=== PATIENT | female | born 1945 | race Caucasian/White ===

== ENCOUNTER 2020-05-08 13:08 | Emergency (ER) | payer OTHER, SELFPAY ==
--- NOTE | ~2020-05-08 | XR_ITS ---
EXAMINATION: XR knee RT 3V DATE: 05/08/2020 13:54 INDICATION: Right knee pain. TECHNIQUE: 3 views of right knee were obtained. COMPARISON: None. FINDINGS: Bone alignment is normal. No fracture. Osteopenia is noted. There is moderate osteoarthriti s of medial and patellofemoral compartments and mild osteoarthritis of lateral compartment. There is a small knee joint effusion. There is superficial infrapatellar bursitis. IMPRESSION: 1. Moderate right knee osteoarthritis. 2. Small right knee joint effusion. 3. Superficial infrapatellar bursitis. Reviewed, dictated and finalized at location A. UNICATION SPEC
[2020-05-08 13:08] VITALS: BP 183/74; PULSE 89; RESP 18; TEMP 36.3; O2SAT 98
--- NOTE | 2020-05-08 13:20 | ED.FALL ---
HPI - Fall General Source: patient Mode of arrival: ambulatory Limitations: no limitations History of Present Illness HPI Narrative: Patient comes in after fall on right knee. She comes in with bruising to right knee. She fell on her right knee in a parking lot and comes in with what appears to be a superficial hematoma to the right knee. Pain is mild, mostly sharp and ongoing unchanged. complaint: fall Onset (ago): minute(s) Fall from: standing Place fall occurred: other (grocery store) Loss of consciousness: none Prolonged down time: no Symptoms prior to fall: none Context: tripped/slipped Location of injury - extremities: Right: knee (Small hematoma over kneecap ) Severity: mild Severity scale (1-10): 4 Quality: sharp Related Data Home Medications Medication Instructions Recorded Confirmed No Home Medications 05/08/20 05/08/20 Allergies Allergy/AdvReac Type Severity Reaction Status Date / Time No Known Allergies Allergy Verified 05/08/20 13:13 Review of Systems Constitutional: Constitutional: Reports no additional constitutional complaints Eyes: Eyes: Reports no additional eye complaints ENT: Reports system reviewed and no additional complaints, except as documented Cardiovascular: Cardiovascular: Reports no additional cardiovascular complaints Respiratory: Respiratory: Reports no additional respiratory complaints Gastrointestinal: Gastrointestinal: Reports no additional gastrointestinal complaints Genitourinary: Genitourinary: Reports no additional female genitourinary complaints Musculoskeletal: Musculoskeletal: Reports no additional musculoskeletal complaints Integumentary/Breasts: Skin/Breast: Reports system reviewed and no additional complaints, except as docu Neurologic: Reports system reviewed and no additional complaints, except as documented Psychiatric: Psychiatric: Reports no additional psychiatric complaints Endocrine: Endocrine: Reports no additional endocrine complaints Hematologic/Lymphatic: Hematologic/Lymphatic: Reports no additional hematologic/lymphatic complaints Allergic/Immunologic: Allergic/Immunologic: Reports no additional allergic/immunologic complaints [facility] Past Medical History Medical History Colon cancer Surgical History Surgical History S/P colon resection Family History Family History (Updated 05/08/20 @ 14:17 by Royer Culver MD) Mother No problems noted. Social History Social History (Updated 05/08/20 @ 14:17 by Royer Culver MD) Smoking status: Current every day smoker Tobacco type: cigarettes Additional smoking assessment comments: 1/2 PPD Exam Const: General: no acute distress Nutritional Appearance: well nourished HENMT: Head: normal to inspection Ears: external ears normal Mouth: Yes Normal oral and palatal mucosa present Teeth and gingiva: dentition normal Throat: posterior oropharynx normal Eyes: Conjunctivae: conjunctivae normal Pupils: Equal, round and reactive pupils present Neck: Neck: normal visual inspection Chest: Chest palpation & inspection: normal inspection of the chest Resp: Effort & Inspection: normal respiratory effort Auscultation: clear to auscultation bilaterally Cardio: Rate: regular rate Rhythm: regular rhythm GI: Auscultation: normal bowel sounds (soft nontender) Skin: General skin exam: normal color Neuro: General: patient oriented x3, moves all extremities and no focal motor deficits Extrem: Other: Bruising over right Course Course Emergency Course: Plain films of the right knee were done and were unremarkable. We will discharge her. She declines a steroid. She declines ketorolac that has been offered. Vital Signs Vital signs: Vital Signs Temperature 36.3 C L 05/08/20 13:08 Pulse Rate 89 05/08/20 13:08 Respiratory Rate 18 05/08/20 13:08 Blood Pressure 183
--- NOTE | 2020-05-08 13:31 | PC.NURSE ---
PT OFFERED PAIN MEDICATION ORDERED BY ERP. PATIENT STATES SHE DOES NOT WANT A SHOT. ORAL PAIN RELIEF MEDICATION OFFERED, PATIENT STATES SHE ALSO DOES NOT WANT THAT. SHE STATES HER PAIN IS NOT THAT BAD.
[2020-05-08 14:10] VITALS: BP 185/77; PULSE 90; RESP 18; O2SAT 95
== END 2020-05-08 14:10 | disposition home or self-care (01) ==
PROVIDERS: Emergency Provider Emergency Medicine
DX: S80.01XA Contusion of right knee, initial encounter (principal); W19.XXXA Unspecified fall, initial encounter
CPT/HCPCS: 73562; 99282; 99283

== ENCOUNTER 2020-12-31 18:10 | Emergency (ER) | payer MEDICARE, SELFPAY ==
--- NOTE | ~2020-12-31 | XR_ITS ---
XR lumbar spine 2-3V DATE: 12/31/2020 19:23 INDICATION: Lower back pain. No injury. TECHNIQUE: AP, lateral, coned lateral lumbosacral views COMPARISON: None FINDINGS: There is diffuse osteopenia. There is moderate levoscoliosis of the thoracolumbar spine. No fracture or bone destruction is evident. Included lower thoracic and lumbar pedicles are intact. There is grade 1 anterolisthesis at L4-5 due to degenerative changes apophyseal joints. There is mild degenerative disc disease of the lumbar spine. The sacroiliac joints appear normal. There is extensive calcification of the abdominal aorta. Abdominal aortic aneurysm is suggested. IMPRESSION: Diffuse osteopenia Levoscoliosis of the thoracic and lumbar spine Grade 1 anterolisthesis at L4-5 due to degenerative change at the apophyseal joints Mild degenerative disc disease Reviewed, dictated and finalized at location A. IMPRESSION: Diffuse osteopenia Levoscoliosis of the thoracic and lumbar spine Grade 1 anterolisthesis at L4-5 due to degenerative change at the apophyseal chastity ints Mild degenerative disc disease
--- NOTE | ~2020-12-31 | XR_ITS ---
XR hip LT 2V w AP pelvis DATE: 12/31/2020 19:23 INDICATION: Left hip pain. No injury. TECHNIQUE: AP pelvis. AP and lateral views of left hip COMPARISON: None FINDINGS: There is diffuse osteopenia. There is levoscoliosis and degenerative change of the lumbar s pine. No pelvic fracture or bone destruction is evident. Normal alignment at the pubic symphysis and sacroi liac joints. Mild bilateral hip osteoarthritis. No fracture or dislocation, avascular necrosis or bone destruction of the left hip is detected. IMPRESSION: Diffuse osteopenia Levoscoliosis and degenerative change of the lumbar spine Mild bilateral hip osteoarthritis No pelvic or left hip fracture or dislocation Reviewed, dictated and finalized at location A.
--- NOTE | 2020-12-31 18:23 | ED.BACK ---
HPI - Back Pain/Injury General Chief Complaint: Back Pain/Injury Stated Complaint: severe lower back pain Source: patient, family and RN notes reviewed Mode of arrival: wheelchair Limitations: no limitations History of Present Illness MD elicited complaint: back pain Onset (ago): day(s) (3) Timing: constant Similar Symptoms Previously: No Quality: dull and aching Location: left lower back Radiation: other (left hip) Exacerbating factors: movement Relieving factors: none Associated symptoms: weakness, fatigue and difficulty walking Work related injury: No Related Data Home Medications Medication Instructions Recorded Confirmed amlodipine 5 mg PO DAILY 12/31/20 12/31/20 Allergies Allergy/AdvReac Type Severity Reaction Status Date / Time No Known Allergies Allergy Verified 12/31/20 18:30 Review of Systems Review of Systems: All systems reviewed & are unremarkable except as noted in HPI and below Constitutional: Constitutional: Denies chills and Denies fever(s) PMFSH Past Medical History Medical History Colon cancer Surgical History Surgical History S/P colon resection Family History Family History Mother No problems noted. Social History Social History Smoking status: Current every day smoker Tobacco type: cigarettes Additional smoking assessment comments: 1/2 PPD Exam Const: General: healthy appearing and no acute distress Nutritional Appearance: well nourished and thin Orientation/consciousness: patient oriented x3 HENMT: Head: normal to inspection Ears: external ears normal Eyes: Conjunctivae: conjunctivae normal Pupils: Equal, round and reactive pupils present EOM: EOMs intact bilaterally Neck: Neck: normal visual inspection Resp: Effort & Inspection: normal respiratory effort Auscultation: clear to auscultation bilaterally Cardio: Rate: regular rate Rhythm: regular rhythm GI: GI Palp: Yes Soft to palpation, No Tenderness to palpation present (GI) and No Rebound tenderness present Auscultation: normal bowel sounds Back/Spine/Pelvis: Cervical Spine: cervical ROM normal Thoracic/Lumbar Spine: straight leg raise negative bilaterally, paraspinal muscle tenderness on the left (mild) in the lower lumbar and thoraco-lumbar ROM limited with forward flexion Pelvis: no pain with anterior-posterior compression (mild) Sacroiliac joints: on the left tender to palpation Sacrum: no tenderness Coccyx: no tenderness Skin: General skin exam: normal color Rashes: no rashes Neuro: General: patient oriented x3, moves all extremities, no meningeal signs and no focal motor deficits Speech: normal speech Gait exam (Neuro): Normal gait present Extrem: General: no clubbing, cyanosis or edema Left lower extremity: hip/thigh Details: tenderness Location: of the hip Location: posterolaterally (moderate) Psych: Appearance: grossly normal and well kempt Mental Status: mental status grossly normal Affect: normal affect Attitude: cooperative Thought content: Yes Normal thought content present Course Course Emergency Course: patient significantly improved after injection of Toradol 30 mg. She says that her blood pressure is always elevated when she goes to the doctor however I am going to give her some clonidine 0.2 mg p.o.. Recommended she be on anti-inflammatory for 10 days and she will follow up with her doctor after that. Discharge Plan Discharge Clinical Impression: Scoliosis Qualifiers: Scoliosis type: idiopathic Idiopathic scoliosis type: other Spinal region: thoracolumbar Qualified Code(s): M41.25 - Other idiopathic scoliosis, thoracolumbar region OA (osteoarthritis) of hip Qualifiers: Osteoarthritis type: unspecified Laterality: left Qualified Code(s): M16.12 - Unilat
[2020-12-31 18:34] VITALS: BP 206/75; PULSE 86; RESP 18; TEMP 36.8; O2SAT 97
[2020-12-31] MEDS: KETOROLAC 30 MG/ML VIAL (*BKC) IM (19:05)
[2020-12-31 19:55] VITALS: BP 222/88; PULSE 74; RESP 20; O2SAT 98
[2020-12-31] MEDS: cloNIDine HCL 0.1 MG TABLET 0.2 MG PO (20:04)
[2020-12-31 20:25] VITALS: BP 178/72; PULSE 80
[2020-12-31 20:36] VITALS: BP 178/82; PULSE 72; RESP 20; TEMP 36.6; O2SAT 99
== END 2020-12-31 20:38 | disposition home or self-care (01) ==
PROVIDERS: Emergency Provider Emergency Medicine
DX: M41.25 Other idiopathic scoliosis, thoracolumbar region (principal); M16.12 Unilateral primary osteoarthritis, left hip; M51.36 Other intervertebral disc degeneration, lumbar region; Z85.038 Personal history of other malignant neoplasm of large intestine; F17.200 Nicotine dependence, unspecified, uncomplicated
CPT/HCPCS: 72100; 73502; 96372; 99283; A9270; J1885

== ENCOUNTER 2021-01-06 16:42 | Emergency (ER) | payer MEDICARE, SELFPAY ==
--- NOTE | ~2021-01-06 | CT_ITS ---
EXAMINATION: CTA chest abdomen DATE: 01/06/2021 20:47 CDT INDICATION: Abdominal aortic aneurysm. TECHNIQUE: Computed tomographic angiography (CTA) of the chest, abdomen no evidence for aortic dissec tion. Small right pleural effusion. Right basilar airspace consolidation may represent pneumonia and/ or atelectasis. No thoracic lymphadenopathy. Atrophic thyroid gland. Was performed without and with 1 00 mL Omnipaque-350 intravenous contrast. The dose-length product was 179.29 mGy-cm. Maximum intensit y projection 3D-reconstructions of the aorta and other arteries were constructed by the technologist on a separate workstation. Automated exposure control and iterative reconstruction technique were emp loyed. COMPARISON: None. FINDINGS: CHEST/ABDOMEN CTA: There is moderate diffuse atherosclerosis of the aorta and coronary arteries. Heart size normal. Ther e are multiple saccular aneurysms of the infrarenal abdominal aorta with the superiormost aneurysm me asuring 3.4 cm AP x3.1 cm transverse. The inferior aneurysm measures 3.4 x 3.3 cm. No evidence for pu lmonary embolism. The liver, spleen, pancreas, right adrenal gland are unremarkable. There is bilateral renal cortical thinning. There is left adrenal thickening without discrete mass, likely adrenal hyperplasia. Gallbla dder is present. Nonobstructive bowel gas pattern. There is a T8 compression fracture, likely chronic . Moderate thoracic and lumbar spondylosis. IMPRESSION: 1. Infrarenal abdominal aortic saccular aneurysms, largest measuring up to 3.4 cm maximum dimension. No evidence for aortic dissection. 2: Right lower lobe airspace consolidation which may represent pneumonia and/or atelectasis. 3: Small right pleural effusion. 4: Wedge compression fracture of T8, likely chronic. Reviewed, dictated and finalized at location A.
--- NOTE | ~2021-01-06 | CT_ITS ---
EXAMINATION: CT lumbar spine wo con DATE: 01/06/2021 18:44 CDT INDICATION: Acute low back pain TECHNIQUE: Computed tomography (CT) of the lumbar spine was performed without intravenous contrast. T he dose-length product was 147.90 mGy-cm. Automated exposure control and iterative reconstruction ani hnique were employed. COMPARISON: Lumbar spine dated 12/31/2020 FINDINGS: Moderate right pleural effusion. Right lower lobe airspace disease, compatible with pneumon ia. There are nonobstructing bilateral renal stones. There is diffuse atherosclerosis with multiple m id-lower to lower abdominal aortic aneurysms with saccular appearance. The mid abdominal aortic aneur ysm measures 3.5 cm. The lower aneurysm is not well visualized. There is loss of disc height at all l umbar levels consistent with degenerative disc disease. There is moderate multilevel facet hypertroph y with levoscoliosis. There is grade 1 degenerative spondylolisthesis at L4-5. The following disc lev els are specifically discussed: T11-T12: The disc does not extend beyond the endplate margin. There is no facet joint osteoarthritis. There is no neural foraminal stenosis. There is no central canal stenosis. T12-L1: The disc does not extend beyond the endplate margin. There is no facet joint osteoarthritis. There is no neural foraminal stenosis. There is no central canal stenosis. L1-L2: The disc does not extend beyond the endplate margin. There is no facet joint osteoarthritis. T here is no neural foraminal stenosis. There is no central canal stenosis. L2-L3: There is mild disc bulging without focal herniation. There is bilateral facet joint osteoarthr itis. There is no neural foraminal stenosis. There is no central canal stenosis. L3-L4: There is mild annular disc bulging. There is bilateral facet joint osteoarthritis. There is no neural foraminal stenosis. There is no central canal stenosis. L4-L5: There is moderate annular disc bulging. There is bilateral facet joint osteoarthritis. There i s bilateral neural foraminal stenosis. There is moderate central canal stenosis. L5-S1: There is mild annular disc bulging. There is bilateral facet joint osteoarthritis. There is bi lateral neural foraminal stenosis. There is mild central canal stenosis. IMPRESSION: 1. No acute lumbar spine fracture. 2: Severe cervical spondylosis. 3: Infrarenal abdominal aortic aneurysm, incompletely visualized. 4: Right lower lobe airspace consolidation, consistent with pneumonia. Small right pleural effusion. 5: Nonobstructing bilateral nephrolithiasis. Reviewed, dictated and finalized at location A. IMPRESSION: 1. No acute lumbar spine fracture. 2: Severe cervical spondylosis. 3: Infrarenal abdominal aortic aneurysm, incompletely visualized. 4: Right lower lobe airspace consolidation, consistent with pneumonia. Small ri ght pleural effusion. 5: Nonobstructing bilateral nephrolithiasis.
[2021-01-06 16:51] VITALS: BP 150/72; PULSE 89; RESP 16; TEMP 36.4; O2SAT 98
[2021-01-06] MEDS: oxyCODONE/ACETAMINOPHEN (*CRX) 5-325 MG TABLET 1 TABLET PO (18:16)
[2021-01-06 18:26] VITALS: BP 209/87; PULSE 76; RESP 15; O2SAT 97
[2021-01-06 19:19] VITALS: BP 158/83; PULSE 72; RESP 16; O2SAT 94
--- NOTE | 2021-01-06 19:22 | PC.NURSE ---
assuming care of pt at this time. report from CALVIN Messer.
--- NOTE | 2021-01-06 19:36 | PC.NURSE ---
tech at bedside at this time drawing labs.
[2021-01-06 19:44] LABS: Basophils Absolute Auto 0.3 K/mm3 (0.0-0.1); Basophils Percent Auto 2.6 % (0.2-1.2); Eosinophils Absolute Auto 0.1 K/mm3 (0-0.3); Eosinophils Percent Auto 1.4 % (0-4.4); Hematocrit 38.1 % (37.0-47.0); Hemoglobin 11.1 g/dL (12.0-15.0); Immature Granulocyte Absolute 0.15 K/mm3 (0.00-0.031); Immature Granulocyte Percent A 1.5 % (0-0.5); Lymphocytes Absolute Auto 0.88 K/mm3 (0.9-3.2); Lymphocytes Percent Auto 8.7 % (18.3-44.2); Mean Corpuscular HGB Conc 29.1 g/dl (32-36); Mean Corpuscular Hemoglobin 20.4 pg (26-34); Mean Corpuscular Volume 70.2 fl (80-100); Monocytes Absolute Auto 1.2 K/mm3 (0.1-0.6); Monocytes Percent Auto 11.6 % (2.6-8.5); Neutrophils Absolute Auto 7.5 K/mm3 (1.3-6.7); Neutrophils Percent Auto 74.2 % (45.5-73.1); Nucleated Red Blood Cells Perc 0.2 % (0.0-0.2); Platelet Count Result 367 k/mm3 (150-375); Red Blood Count 5.43 M/mm3 (4.2-5.4); Red Cell Distribution Width 22.8 % (11.5-14.5); White Blood Count 10.1 K/mm3 (4.5-10.0)
[2021-01-06 20:02] LABS: D Dimer 1.46 ug/mL (<0.48)
[2021-01-06 20:03] LABS: Anion Gap 12 mmol/L (8-16); Blood Urea Nitrogen 14 mg/dL (7-17); Calcium 9.4 mg/dL (8.4-10.2); Carbon Dioxide 24 mmol/L (22-30); Chloride 101 mmol/L (98-107); Estimated CRCL calculation 44 ml/min; Estimated Glomerular Filt Rate > 60; Glucose 119 mg/dL (65-110); Potassium 3.2 mmol/L (3.4-5.0); Sodium 137 mmol/L (137-145)
--- NOTE | 2021-01-06 21:37 | ED.BACK ---
HPI - Back Pain/Injury General Chief Complaint: Back Pain/Injury Stated Complaint: lower back Time Seen by Provider: 01/06/21 17:21 Source: patient Mode of arrival: ambulatory Limitations: no limitations History of Present Illness HPI Narrative: 75-year-old female History of hypertension but otherwise generally healthy Here for back pain She complains of lower back pain that radiates into her left SI and buttock for a couple of weeks No triggering injury No numbness, weakness, bowel or bladder issues She was seen at an urgent care a week ago and prescribed a muscle relaxer and NSAID but does not feel like she is getting much relief in fact she thinks she may be worse Related Data Home Medications Medication Instructions Recorded Confirmed amlodipine 5 mg PO DAILY 12/31/20 01/06/21 Allergies Allergy/AdvReac Type Severity Reaction Status Date / Time No Known Allergies Allergy Verified 01/06/21 16:55 Review of Systems Review of Systems: All systems reviewed & are unremarkable except as noted in HPI and below Constitutional: Constitutional: Reports no additional constitutional complaints, Denies chills, Denies fever(s) and Denies headache(s) Eyes: Eyes: Reports no additional eye complaints and Denies change in vision ENT: Denies headache(s) and Denies sore throat Cardiovascular: Cardiovascular: Denies chest pain and Denies dyspnea Respiratory: Respiratory: Denies cough and Denies dyspnea Gastrointestinal: Gastrointestinal: Denies abdominal pain, Denies diarrhea and Denies vomiting Genitourinary: Genitourinary: Denies urinary frequency and Denies dysuria Musculoskeletal: Musculoskeletal: Reports back pain, Denies deformity, Denies arthralgias, Denies joint swelling and Denies numbness Integumentary/Breasts: Skin/Breast: Denies rash and Denies wounds Neurologic: Denies headache(s), Denies focal weakness and Denies numbness Psychiatric: Psychiatric: Reports no additional psychiatric complaints Endocrine: Endocrine: Reports no additional endocrine complaints Hematologic/Lymphatic: Hematologic/Lymphatic: Reports no additional hematologic/lymphatic complaints Allergic/Immunologic: Allergic/Immunologic: Reports no additional allergic/immunologic complaints [facility] Past Medical History Medical History Colon cancer Surgical History Surgical History S/P colon resection Family History Family History Mother No problems noted. Social History Social History Smoking status: Current every day smoker Tobacco type: cigarettes Additional smoking assessment comments: 1/2 PPD Exam Const: General: cooperative, no acute distress and alert Nutritional Appearance: thin Orientation/consciousness: patient oriented x3 (alert) HENMT: Head: normal to inspection, normocephalic and atraumatic Ears: external ears normal General nose exam: no epistaxis Eyes: Conjunctivae: conjunctivae normal EOM: EOMs intact bilaterally Neck: Neck: normal visual inspection, supple and no JVD Resp: Effort & Inspection: normal respiratory effort and not labored Auscultation: clear to auscultation bilaterally, no rales, no rhonchi, no wheezes and other (BS =) Cardio: Rate: regular rate Rhythm: regular rhythm Heart sounds: no murmurs GI: GI Palp: Yes Soft to palpation and No Tenderness to palpation present (GI) Back/Spine/Pelvis: Other: Mild lumbar midline paraspinous on the left and SI on the left tenderness She has a negative straight leg raise but has pain as the leg is lowered Skin: General skin exam: normal color and no rashes or lesions noted Neuro: General: patient oriented x3 (alert) and moves all extremities Speech: normal speech Extrem: General: normal to inspection and no pedal edema Psy
[2021-01-06 22:09] VITALS: BP 157/82; PULSE 70; RESP 16; O2SAT 100
== END 2021-01-06 22:10 | disposition home or self-care (01) ==
PROVIDERS: Emergency Provider Emergency Medicine
DX: M54.50 Low back pain, unspecified (principal); J98.11 Atelectasis; I71.4 Abdominal aortic aneurysm, without rupture; I10 Essential (primary) hypertension; Z90.49 Acquired absence of other specified parts of digestive tract; F17.210 Nicotine dependence, cigarettes, uncomplicated; M47.812 Spondylosis without myelopathy or radiculopathy, cervical region; N20.0 Calculus of kidney
CPT/HCPCS: 36415; 71275; 72131; 74175; 80048; 85025; 85380; 99284; A9270; Q9967